=== PATIENT | female | born 1980 | race American Indian/Alaskan Native ===

== ENCOUNTER 2017-10-11 22:25 | Emergency (ER) | payer BC ==
[~2017-10-11] VITALS: Ht 175.3 cm; Wt 59.9 kg
[2017-10-11 22:35] VITALS: BP_SYST 129
== END 2017-10-11 23:21 | disposition left against medical advice (07) ==
LOC: SED 22:25
DX: R07.89 Other chest pain (principal); R06.02 Shortness of breath; Z53.21 Procedure and treatment not carried out due to patient leaving prior to being seen by health care provider